=== PATIENT | male | born 1970 | race Caucasian/White ===

== ENCOUNTER → 2018-04-27 | Outpatient (CLI) | payer MEDICARE ==
[~2018-04-27] MED LIST: MEDROLDOSEPACK PO; ROXICODONE30 M1 PO
--- NOTE | 2018-04-27 11:45 | 2DMMODE ---
[place] [id number] 2 D/M-MODE ECHOCARDIOGRAM Name: JESICA RANDHAWA Room: [facility]#: [id number] Admission: 04/27/18 Attend Phys: Jet Jean, Discharge: Date of : 68 Date of Service: 04/27/18 1145 Report #: [id number] THIS REPORT FOR: //name// APPROVED REPORT Study performed: 04/27/2018 09:08:12 EXAM: Comprehensive 2D, Doppler, and color-flow Echocardiogram Patient Location: Out-Patient Status: routine BSA: 1.86 HR: 84 bpm BP: 100/60 mmHg Other Information Study Quality: Good Indications Tachycardia 2D Dimensions IVSd: 12.05 (7-11mm) LVOT Diam: 20.63 (18-24mm) LVDd: 43.42 mm PWd: 10.26 (7-11mm) Ascending Ao: 28.91 (22-36mm) LVDs: 22.13 (25-40mm) Aortic Root: 28.17 mm Volumes Left Atrial Volume (Systole) LA ESV Index: 11.60 mL/m2 Aortic Valve AoV Peak Nikolas.: 0.94 m/s AO Peak Gr.: 3.56 mmHg LVOT Max P.07 mmHg AO Mean Gr.: 2.09 mmHg LVOT Mean P.42 mmHg LVOT Max V: 0.88 m/s AO V2 VTI: 13.59 cm LVOT Mean V: 0.55 m/s MAYRA (VTI): 3.40 cm2 LVOT V1 VTI: 13.84 cm Mitral Valve E/A Ratio: 0.79 MV Decel. Time: 176.12 ms MV E Max Nikolas.: 0.40 m/s MV PHT: 51.07 ms MVA (PHT): 4.31 cm2 [place] [address] 2 D/M-MODE ECHOCARDIOGRAM Name: JESICA RANDHAWA [id number] Admission: 04/27/18 Attend Phys: Jet Jean, Discharge: Date of : 68 Date of Service: 04/27/18 1145 Report #: [id number] TDI E/Lateral E': 4.44 E/Medial E': 5.00 Medial E' Nikolas.: 0.08 m/s Lateral E' Nikolas.: 0.09 m/s Pulmonary Valve PV Peak Nikolas.: 0.76 m/s PV Peak Gr.: 2.30 mmHg Tricuspid Valve RAP Estimate: 5.00 mmHg TR Peak Gr.: 16.33 mmHg RVSP: 21.33 mmHg PA Pressure: 21.33 mmHg Left Ventricle The left ventricle is normal size. There is normal LV segmental wall motion. There is normal left ventricular wall thickness. Left ventricular systolic function is normal. The left ventricular ejection fraction is within the normal range. LVEF is 55-60%. Grade I - abnormal relaxation pattern. Right Ventricle The right ventricle is normal size. The right ventricular systolic function is normal. Atria The left atrium size is normal. The right atrium size is normal. Aortic Valve The aortic valve is normal in structure. No aortic regurgitation is present. There is no aortic valvular stenosis. Mitral Valve The mitral valve is normal in structure. There is no mitral valve regurgitation noted. No evidence of mitral valve stenosis. Tricuspid Valve The tricuspid valve is normal in structure. Mild tricuspid regurgitation. Pulmonic Valve The pulmonary valve is normal in structure. There is no pulmonic [place] [address] 2 D/M-MODE ECHOCARDIOGRAM Name: JESICA RANDHAWA Room: [facility]#: [id number] Admission: 04/27/18 Attend Phys: Jet Jean, Discharge: Date of : 68 Date of Service: 04/27/18 1145 Report #: [id number] Great Vessels The aortic root is normal in size. IVC is normal in size and collapses >50% with inspiration. Pericardium There is no pericardial effusion. <Conclusion> Left ventricular systolic function is normal. The left ventricular ejection fraction is within the normal range. <ELECTRONICALLY SIGNED> By: Ezra Paez MD, FACC 04/27/18 1145 1145 1145 Ezra Paez MD, FAC /INF
== END ==
LOC: M.CRD 08:49
DX: R00.0 Tachycardia, unspecified (principal)